=== PATIENT | male | born 1935 | race Caucasian/White ===

== ENCOUNTER 2022-09-09 16:09 | Emergency (ER) | payer MEDICARE ==
[2022-09-09 17:11] LABS: ALT (SGPT) Less than 6 U/L (8-55); AST (SGOT) 7 U/L (5-34); Albumin 3.3 g/dL (3.4-4.8); Alkaline Phosphatase 56 U/L (40-110); Anion Gap 12 mmol/L (10-20); BUN (Urea Nitrogen) 45 mg/dL (8.4-25.7); Bilirubin, Total 0.6 mg/dL (0.2-1.2); Calc. Creatinine Clearance 0 mL/min (70-130); Calcium 8.6 mg/dL (7.8-10.44); Carbon Dioxide 19 mmol/L (23-31); Chloride 115 mmol/L (98-107); Estimated GFR 30; Globulin 1.3 g/dL (2.4-3.5); Glucose 138 mg/dL (83-110); Potassium 4.5 mmol/L (3.5-5.1); Protein, Total 4.6 g/dL (5.8-8.1); Sodium 141 mmol/L (136-145)
[2022-09-09 17:20] LABS: Hemoglobin 8.6 g/dL (13.5-17.5); Mean Corpuscular HGB CONC 33.1 g/dL (32.0-36.0); Mean Corpuscular Hemoglobin 31.7 pg (27.0-33.0); Mean Corpuscular Volume 95.9 fl (81.2-95.1); Mean Platelet Volume 12.9 fl (7.4-10.4); Platelet Count 88 10x3/uL (150-450); RBC Distribution Width 14.9 % (11.5-14.5); Red Blood Cell (RBC) Count 2.71 10x6/uL (4.32-5.72); White Blood Cell (WBC) Count 3.5 10x3/uL (3.5-10.5)
[2022-09-09 17:49] LABS: Magnesium 1.9 mg/dL (1.6-2.6)
[2022-09-09 17:50] LABS: Eosinophils 5 % (0-10); Monocytes 21 % (0-10); Myelocyte 1 % (0-0)
[2022-09-09 17:52] LABS: Band 1 % (5-11)
[2022-09-09 17:55] LABS: Anisocytosis SLIGHT = 6-15 cells (100X) (0-5/hpf); Lymphocytes 54 % (21-51); Macrocytosis SLIGHT = 6-15 cells (100X) (0-5/hpf); Ovalocytes SLIGHT = 2-5 cells (100X) (0-1/hpf)
[2022-09-09 17:56] LABS: Large Platelets SLIGHT; Platelet Morphology Comment Appears Decreased
[2022-09-09 17:57] LABS: MDiff Complete? YES; Neutrophil 18 % (42-75)
== END 2022-09-09 20:46 | disposition home or self-care (01) ==
LOC: CSHERS 16:09
DX: M79.602 Pain in left arm (principal); R63.0 Anorexia; R19.7 Diarrhea, unspecified; I10 Essential (primary) hypertension; E78.00 Pure hypercholesterolemia, unspecified; D50.0 Iron deficiency anemia secondary to blood loss (chronic); F03.90 Unspecified dementia, unspecified severity, without behavioral disturbance, psychotic disturbance, mood disturbance, and anxiety; C91.10 Chronic lymphocytic leukemia of B-cell type not having achieved remission; Z79.899 Other long term (current) drug therapy
CPT/HCPCS: 36415; 80053; 83735; 85025; 93005; 96360; 96361